=== PATIENT | female | born 1995 | race Native Hawaiian/Other Pacific Islander ===

== ENCOUNTER 2023-11-07 06:14 | Inpatient (IN) | payer MEDICAID ==
[~2023-11-07 06:14] MED LIST: ACET-93 PO; DOCU-239 PO; IBUP-1780 PO; OXC5T PO
[2023-11-07] MEDS ORDERED: AMPICILLIN (IV) 2,000 MG in NS (IVPB) 50 ML 50 ML IV SCH (06:23)
[2023-11-07] MEDS ORDERED: MINERAL OIL 30 ML UDC TOP PRN (06:30)
[2023-11-07] MEDS ORDERED: D5 LR 1,000 ML IV SOLN 1,000 ML IV SCH (06:30)
[2023-11-07] MEDS ORDERED: LACTATED RINGERS 1,000 ML 500 ML IV PRN (06:30)
[2023-11-07 06:42] LABS: BASOPHILS % (AUTO) 1 % (0-10); EOSINOPHILS # (AUTO) 0.1 10^3/uL (0.0-0.3); EOSINOPHILS % (AUTO) 2 % (0-10); HEMATOCRIT 33 % (35-52); HEMOGLOBIN 11.3 g/dL (11.5-16.0); LYMPHOCYTES # (AUTO) 2.3 10^3/uL (1.0-4.0); LYMPHOCYTES % (AUTO) 27 % (12-44); MEAN CORPUSCULAR HEMOGLOBIN 28 pg (25-34); MEAN CORPUSCULAR HGB CONC 35 g/dL (32-36); MEAN CORPUSCULAR VOLUME 81 fL (80-99); MEAN PLATELET VOLUME 9.2 fL (9.0-12.2); MONOCYTES # (AUTO) 0.6 10^3/uL (0.0-1.0); MONOCYTES % (AUTO) 7 % (0-12); NEUTROPHILS # (AUTO) 5.4 10^3/uL (1.8-7.8); NEUTROPHILS % (AUTO) 64 % (42-75); PLATELET COUNT 195 10^3/uL (130-400); WHITE BLOOD COUNT 8.5 10^3/uL (4.3-11.0)
[2023-11-07] MEDS ORDERED: OXYTOCIN DRIP PRE-MIX 500 ML IV ONE ×2 (06:43→07:31)
[2023-11-07 06:51] VITALS: BP 108/70
[2023-11-07] MEDS: OXYTOCIN DRIP PRE-MIX 500 ML IV SCH ×2 (06:57→07:33)
[2023-11-07 07:00] VITALS: BP 103/65
--- NOTE | 2023-11-07 07:34 | History & Physical-OB ---
OB - Chief Complaint & HPI Date/Time Date of Admission: Date of Admission: Nov 07, 2023 at 06:21 Date seen by a Provider: Nov 07, 2023 Time Seen by a Provider: 07:00 Chief Complaint/History OB-Reason for Admission/Chief: Rupture of Membranes Hx : 4 Hx Para: 3 Other reason for admission: Patient admitted with NO care with [facility]. Thinks she may be 30 weeks. She precip delivered in the bed, and fetus approx ko at 37-38. Admission Nurse Assessment Rev: No Allergies and Home Medications Allergies Coded Allergies: No Known Drug Allergies (Unverified , 12/20/19) Patient Home Medication List Home Medication List Reviewed: Yes Acetaminophen (Acetaminophen) 500 Mg Tablet, 1,000 MG PO Q6HR Prescribed by: ROBERTA SORIA on 12/22/19658 Docusate Sodium (Dok) 100 Mg Capsule, 100 MG PO BID Prescribed by: ROBERTA SORIA on 12/22/19658 Ibuprofen (Ibuprofen) 800 Mg Tablet, 800 MG PO Q8HR Prescribed by: ROBERTA SORIA on 12/22/1959 Oxycodone Hcl (Oxycodone IR) 5 Mg Tab, 5 MG PO Q6H PRN for PAIN-SEVERE (8-10) Prescribed by: ROBERTA SORIA on 12/22/19 0659 OB - History Hx of Present Care: No Patient Past Medical History denies Social History/Family History 2nd Hand Smoke Exposure: No Immunizations Hepatitis A: Yes Hepatitis B: Yes OB - Admission Exam Physical Exam HEENT: NCAT Heart: Rhythm Normal Abdomen: Gravid Labs Laboratory Tests Test 11/07/23 06:25 Range/Units White Blood Count 8.5 4.3-11.0 10^3/uL Red Blood Count 4.02 3.80-5.11 10^6/uL Hemoglobin 11.3 L 11.5-16.0 g/dL Hematocrit 33 L 35-52 % Mean Corpuscular Volume 81 80-99 fL Mean Corpuscular Hemoglobin 28 25-34 pg Mean Corpuscular Hemoglobin Concent 35 32-36 g/dL Red Cell Distribution Width 12.5 10.0-14.5 % Platelet Count 195 130-400 10^3/uL Mean Platelet Volume 9.2 9.0-12.2 fL Immature Granulocyte % (Auto) 0 % Neutrophils (%) (Auto) 64 42-75 % Lymphocytes (%) (Auto) 27 12-44 % Monocytes (%) (Auto) 7 0-12 % Eosinophils (%) (Auto) 2 0-10 % Basophils (%) (Auto) 1 0-10 % Neutrophils # (Auto) 5.4 1.8-7.8 10^3/uL Lymphocytes # (Auto) 2.3 1.0-4.0 10^3/uL Monocytes # (Auto) 0.6 0.0-1.0 10^3/uL Eosinophils # (Auto) 0.1 0.0-0.3 10^3/uL Basophils # (Auto) 0.0 0.0-0.1 10^3/uL Immature Granulocyte # (Auto) 0.0 0.0-0.1 10^3/uL Syphilis Total Antibody Negative Negative OB - Assessment/Plan/Diagnosis Assessment Assessment: active labor Admission Dx 28 yo 3rd trimester No care Precipatous delivery GBS unknown Admission Status: Inpatient Order (span 2 midnights) Reason for Inpatient Admission: active labor no care unknown dates. Plan Plan: Expectant Management Other Plan Await placental delivery, and repair if needed. OZZIE FLEMING DO Nov 07, 2023 07:34
--- NOTE | 2023-11-07 07:36 | OB Labor & Delivery Record ---
L&D History Date of Service Date of Service: Nov 07, 2023 History Expected Date of Delivery: Nov 07, 2023 Hx : 4 Hx Para: 3 Complications Events: No Care Operative Indications (Cesarea: N/A-Vaginal Delivery Intrapartal Events: Precipitous Labor < 3 hrs Condition of Infant Delivery 1 minute Comment: 9 5 minute Comment: 9 Notes Live female weight pending Condition of Infant Condition of : Living Exam: No Observed Abnormalities L&D Stage3 Stage Three Stage III Date: Nov 07, 2023 Pictocin Pitocin Administration Comment: 30 mu wide open after delivery of placenta Placenta Delivery Placenta Delivery: Spontaneous Delivery Summary Summary Estimated blood loss (mL): 200 Attending at delivery: Ozzie Fleming DO Condition of Delivery Examined: Cervix Examined, Uterus Explored Post Hemorrhage: No Condition of Mother stable Condition of Infant (s) stable OZZIE FLEMING DO Nov 07, 2023 07:36
--- NOTE | 2023-11-07 07:38 | Discharge Inst-Women's Service ---
Discharge Inst-Women's Serv Depart Medication/Instructions New, Converted or Re-Newed RX: Transmitted to Pharmacy Final Diagnosis PPD 1 NVD Problems Reviewed?: Yes Consults/Follow Up Additional Follow Up: Yes Orders/Referrals Dr. Fleming in 6 weeks Activity Activity: Activity as Tolerated Driving Instructions: No Driving for 1 Week NO SMOKING: NO SMOKING Nothing Inside Vagina: No Douching, No [place], No Tampons Diet Discharge Diet: No Restrictions Symptoms to Report to : Bleeding Excessive, Pain Increased, Fever Over 101 Degrees F, Vaginal Bleeding Increase, Questions/Concerns For Any Problems or Questions: Contact Your Physician OZZIE FLEMING DO Nov 07, 2023 07:38
[2023-11-07] MEDS ORDERED: PNV1TABL67 PO (07:40)
[2023-11-07] MEDS ORDERED: DOCU100C37 PO (07:40)
[2023-11-07] MEDS ORDERED: FERR325T24 PO (07:40)
[2023-11-07] MEDS ORDERED: DIBU30OI TOP (07:40)
[2023-11-07] MEDS ORDERED: BENZ78AE5 TP (07:40)
[2023-11-07] MEDS ORDERED: ACET-93 PO (07:40)
[2023-11-07] MEDS ORDERED: WITCH HAZEL(TUCKS) 40 EA JAR TOP PRN (07:45)
[2023-11-07] MEDS ORDERED: NALOXONE 0.4 MG/ML 1 ML VIAL IV PRN (07:45)
[2023-11-07] MEDS ORDERED: DIBUCAINE 1% OINTMENT 28 GM TUBE TOP PRN (07:45)
[2023-11-07] MEDS ORDERED: BENZOCAINE/MENTHOL (DERMOPLAST) 56 ML CAN TP PRN (07:45)
[2023-11-07] MEDS ORDERED: Tetanus/Diphtheria/Pertussis (Acell) ADULT Vaccine 0.5 ML IM ONE (07:45)
[2023-11-07] MEDS ORDERED: MEASLES, MUMPS, RUBELLA VACCINE (MMR) SQ ONE (07:45)
[2023-11-07 08:00] VITALS: BP 106/63
[2023-11-07] MEDS: IBUPROFEN 600 MG TABLET PO SCH ×3 (08:12→21:33)
[2023-11-07] MEDS: ACETAMINOPHEN 500 MG TABLET PO SCH ×3 (08:12→21:33)
[2023-11-07] MEDS ORDERED: FERROUS SULFATE 325 MG (IRON) TABLET PO SCH (09:00)
[2023-11-07] MEDS ORDERED: AMPICILLIN (IV) 1,000 MG in NS (IVPB) 50 ML 50 ML IV SCH (10:30)
[2023-11-07 12:00] VITALS: BP 142/78
[2023-11-07] MEDS ORDERED: CATHETER FLUSH 10 ML SYR IV SCH ×2 (14:00)
[2023-11-07 16:00] VITALS: BP 132/80
[2023-11-07 20:20] VITALS: BP 108/55
[2023-11-07] MEDS: DOCUSATE SODIUM 100 MG CAPSULE PO SCH (20:20)
[2023-11-08 00:18] VITALS: BP 101/50
[2023-11-08 04:48] VITALS: BP 93/56
[2023-11-08] MEDS: IBUPROFEN 600 MG TABLET PO SCH ×2 (04:48→11:09)
[2023-11-08] MEDS: ACETAMINOPHEN 500 MG TABLET PO SCH ×2 (04:48→11:10)
[2023-11-08 05:45] LABS: BASOPHILS # (AUTO) 0.1 10^3/uL (0.0-0.1); BASOPHILS % (AUTO) 1 % (0-10); EOSINOPHILS # (AUTO) 0.1 10^3/uL (0.0-0.3); EOSINOPHILS % (AUTO) 1 % (0-10); HEMATOCRIT 25 % (35-52); HEMOGLOBIN 8.6 g/dL (11.5-16.0); LYMPHOCYTES # (AUTO) 2.8 10^3/uL (1.0-4.0); LYMPHOCYTES % (AUTO) 31 % (12-44); MEAN CORPUSCULAR HEMOGLOBIN 28 pg (25-34); MEAN CORPUSCULAR HGB CONC 34 g/dL (32-36); MEAN CORPUSCULAR VOLUME 82 fL (80-99); MEAN PLATELET VOLUME 9.3 fL (9.0-12.2); MONOCYTES # (AUTO) 0.5 10^3/uL (0.0-1.0); MONOCYTES % (AUTO) 6 % (0-12); NEUTROPHILS # (AUTO) 5.5 10^3/uL (1.8-7.8); NEUTROPHILS % (AUTO) 61 % (42-75); PLATELET COUNT 153 10^3/uL (130-400)
[2023-11-08] MEDS ORDERED: PRENATAL VITAMIN TABLET PO SCH (07:00)
[2023-11-08 08:28] VITALS: BP 97/58
[2023-11-08] MEDS: DOCUSATE SODIUM 100 MG CAPSULE PO SCH (08:32)
--- NOTE | 2023-11-08 09:37 | Short Stay Summary ---
Discharge Summary Hospital Course Final Diagnosis: Vaginal Delivery Hospital Course Date of Admission: Nov 07, 2023 at 06:21 Admission Diagnosis : Labor, No Care Family Physician/Provider: Ayana Krueger Physician Date of Discharge: 11/08/23 Discharge Diagnosis: Vaginal Delivery Hospital Course: Patient admitted AM of 11/07/23 in labor with no care, had and routine care. HCT 25% prescribed PNV and Fe. Delivery productive of viable female with 08/09. Will follow up [address] Lechuga. Labs and Pending Lab Test: Laboratory Tests 11/08/23 05:14: White Blood Count 9.0, Red Blood Count 3.10L, Hemoglobin 8.6#L, Hematocrit 25L, Mean Corpuscular Volume 82, Mean Corpuscular Hemoglobin 28, Mean Corpuscular Hemoglobin Concent 34, Red Cell Distribution Width 12.9, Platelet Count 153, Mean Platelet Volume 9.3, Immature Granulocyte % (Auto) 0, Neutrophils (%) (Auto) 61, Lymphocytes (%) (Auto) 31, Monocytes (%) (Auto) 6, Eosinophils (%) (Auto) 1, Basophils (%) (Auto) 1, Neutrophils # (Auto) 5.5, Lymphocytes # (Auto) 2.8, Monocytes # (Auto) 0.5, Eosinophils # (Auto) 0.1, Basophils # (Auto) 0.1, Immature Granulocyte # (Auto) 0.0 Home Meds Active Ferosul (Ferrous Sulfate) 325 Mg (65 Mg Iron) Tablet 325 Mg PO DAILY Pnv Plus Multivit Tab (Pnv with Ca,No.72/Iron/FA) 27 Mg Iron-1 Mg Tablet 1 Ea PO DAILY@0700 Dermoplast Pain Relieving [place] (Benzocaine/Menthol) 20 %-0.5 % Aerosol 56 Ea TP UD PRN Dibucaine 1 % Oint 1 Gm TOP UD PRN Docusate Sodium 100 Mg Capsule 100 Mg PO BID PRN Acetaminophen 500 Mg Tablet 1,000 Mg PO Q6H Dok (Docusate Sodium) 100 Mg Capsule 100 Mg PO BID Acetaminophen 500 Mg Tablet 1,000 Mg PO Q6HR Oxycodone IR (Oxycodone HCl) 5 Mg Tab 5 Mg PO Q6H PRN Ibuprofen 800 Mg Tablet 800 Mg PO Q8HR Assessment/Pt Instructions Routine Instructions. Follow up with Dr. Lechuga 6 weeks , call for appointment. Discharge Instructions Discharge Diet: No Restrictions Activity as Tolerated: Yes Discharge Physical Examination General Appearance: Alert, Oriented X3 Abdominal: No Tenderness, Other (Uterus firm and non-tender, 2 cm below umbilicus) Extremities: No Clubbing, No Edema, No Tenderness/Swelling Skin: No Rashes Neuro: Normal Gait Psych/Mental Status: Mental Status NL Allergies: Coded Allergies: No Known Drug Allergies (Unverified , 12/20/19) Discharge Summary Date of Admission Nov 07, 2023 at 06:21 Date of Discharge Discharge Date: Nov 08, 2023 Discharge Time: 14:00 Admission Diagnosis Labor No care Consults/Procedures Consulations None Procedures Vaginal Delivery Discharge Diagnosis Vaginal Delivery No Care SHERIN CASTELLANOS DO Nov 08, 2023 09:35
[2023-11-08 13:55] VITALS: BP 101/60
[2023-11-08 16:07] VITALS: BP 101/60
== END 2023-11-08 16:07 | disposition home or self-care (01) | DRG 805 ==
LOC: WSo 06:14 → LDRP 06:15 → WSo 06:20 → LDRP 06:21
PROVIDERS: ADMIT Obstetrics & Gynecology; ATTEND Obstetrics & Gynecology
PROC: 10E0XZZ Delivery of Products of Conception, External Approach (ICD-10-PCS; principal; 2023-11-07)
DX: O62.3 Precipitate labor (principal); O60.14X0 Preterm labor third trimester with preterm delivery third trimester, not applicable or unspecified; Z37.0 Single live birth; Z3A.30 30 weeks gestation of pregnancy
CPT/HCPCS: 36415; 85025; 86780; 86850; 86900; 86901; 87340; 87389; 87491; 87591; 99212